=== PATIENT | male | born 1975 | race Caucasian/White ===

== ENCOUNTER 2025-05-20 14:17 | Emergency (ER) | payer BC ==
[~2025-05-20] VITALS: Ht 180.3 cm; Wt 83.9 kg
[2025-05-20 14:23] VITALS: BP 153/95
[2025-05-20] MEDS: LIDOCAINE 1%-EPI 1:100,000 20 ML VIAL IJ ONE (15:09)
[2025-05-20] MEDS ORDERED: TDAP DIPH,PERTUSS,TET VAC/PF 0.5 ML DISP.SYRIN IM ONE (15:11)
[2025-05-20] MEDS ORDERED: LIDOCAINE 1%-EPI 1:100,000 20 ML VIAL ONE (15:15)
[2025-05-20] MEDS: TDAP DIPH,PERTUSS,TET VAC/PF 0.5 ML DISP.SYRIN IM ONE (15:36)
[2025-05-20 15:55] VITALS: BP 146/91; O2SAT 98
== END 2025-05-20 16:36 | disposition home or self-care (01) ==
LOC: ER 14:17
DX: S01.511A Laceration without foreign body of lip, initial encounter (principal); I51.9 Heart disease, unspecified; E78.5 Hyperlipidemia, unspecified; Y04.0XXA Assault by unarmed brawl or fight, initial encounter; Y93.89 Activity, other specified; Y92.89 Other specified places as the place of occurrence of the external cause; Y99.9 Unspecified external cause status
CPT/HCPCS: 40650; 99284; J3490; 90715; A4606; A4663